=== PATIENT | female | born 2000 | race Caucasian/White ===

== ENCOUNTER 2022-05-30 13:57 | Emergency (ER) | payer MEDICAID ==
[2022-05-30 14:42] VITALS: BP 111/61; O2SAT 100
[2022-05-30 15:21] LABS: Appearance SLIGHTLY CLOUDY (CLEAR); Bilirubin NEGATIVE (NEGATIVE); Dipstick done @ ? MAIN LAB; Glucose NEGATIVE (NEGATIVE); Ketones NEGATIVE (NEGATIVE); Nitrite NEGATIVE (NEGATIVE); Ph 6.5 (5-6); Protein,Urine Dip NEGATIVE (Negative); RBC TRACE-INTACT Ery/ul (0-5); Urobilinogen 0.2 mg/dL (0-1)
[2022-05-30 15:24] LABS: Bacteria FEW /HPF (NEGATIVE); Epithelial Cells FEW /HPF (FEW); WBC >100 /HPF (0-5)
[2022-05-30 15:26] LABS: Urine Cultured Indicated? YES
[2022-05-30 16:15] VITALS: PULSE 86
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
== END 2022-05-30 16:45 | disposition left against medical advice (07) ==
LOC: ED 13:57
DX: M54.50 Low back pain, unspecified (principal); M54.6 Pain in thoracic spine; Z79.899 Other long term (current) drug therapy; Z28.310 Unvaccinated for COVID-19
CPT/HCPCS: 72072; 72110; 81015; 81025; 87086; G0463; 99283

== ENCOUNTER 2022-11-30 15:03 | Day surgery (SDC) | payer MEDICAID ==
[2022-11-30 15:16] LABS: HCG URINE TEST POSITIVE (NEGATIVE)
== END 2022-11-30 15:30 | disposition home or self-care (01) ==
LOC: SDC-PAIN 15:03
PROVIDERS: ATTEND Psychiatry & Neurology Pain Medicine
DX: Z53.8 Procedure and treatment not carried out for other reasons (principal)
CPT/HCPCS: 36415; 81025

== ENCOUNTER 2024-06-19 13:22 | Emergency (ER) | payer MEDICAID ==
[2024-06-19 13:58] VITALS: TEMP 97
[2024-06-19 14:57] LABS: HCG SERUM TEST POSITIVE (NEGATIVE)
[2024-06-19 15:14] LABS: Absolute Neutrophil Ct (ANC) 7.52 x10^3/uL (1.56-6.13); BASOPHIL % 0.2 % (0.1-1.2); Basophil (Absolute #) 0.02 x10^3/uL (0.01-0.08); Eosinophil % 0.4 % (0.7-5.8); Eosinophil (Absolute #) 0.04 x10^3/uL (0.04-0.36); Hemoglobin 13.8 g/dL (11.2-15.7); IMMATURE GRAN # 0.05 x10^3u/L (0.001-0.031); IMMATURE GRAN % 0.5 % (0.001-0.429); Lymphocyte (Absolute #) 1.92 x10^3/uL (1.18-3.74); Lymphocytes % 18.9 % (19.3-51.7); Mean Cell Volume 86.1 fL (79.4-94.8); Mean Corpuscular Hgb Concent. 33.7 g/dL (32.2-35.5); Mean Platelet Volume 9.8 fL (9.4-12.3); Monocytes % 5.9 % (4.7-12.5); Neutrophil % 74.1 % (34.0-71.1); Platelet Count 349 x10^3/uL (182-369); Red Blood Count 4.76 x10^6/uL (3.93-5.22); Red Cell Distribution Width 12.2 % (11.7-14.4); White Blood Count 10.2 x10^3/uL (3.98-10.04)
[2024-06-19 15:20] LABS: ALBUMIN 4.4 g/dL (3.5-5.0); ANION GAP 14.2 MEQ/L (5-15); BILIRUBIN,TOTAL 0.4 mg/dL (0.2-1.3); Calcium 9.6 mg/dL (8.4-10.2); Creatinine 1 0.99 mg/dL (0.52-1.04); EST GLOMERULAR FILTRATION RATE 83.2 ML/MIN; Potassium 3.9 mmol/L (3.5-5.1); Total Protein 7.2 g/dL (6.3-8.2)
[2024-06-19 15:20] LABS: Appearance Clear (Clear); Bacteria Rare /HPF (None Seen); Bilirubin Negative (Negative); Blood Large (Negative); Epithelial Cells Rare /HPF (None Seen); Glucose, Urine Negative (Negative); Hyaline Casts NONE SEEN /LPF (0-2); Ketones Negative (Negative); Leukocyte Esterase Trace (Negative); Nitrite Negative (Negative); Protein,Urine Dip Trace (Negative); Specific Gravity <=1.005 (1.005-1.030); Urobilinogen 0.2 mg/dL (0.2)
[2024-06-19 16:17] LABS: ABO TYPING O; Antibody Screen NEGATIVE (NEGATIVE); RH TYPING POSITIVE
--- NOTE | 2024-06-19 17:02 | XRAY ---
Indication: Vaginal bleeding. Positive test. Two-dimensional transabdominal early OB ultrasound performed. Comparison: None Uterus anteverted without focal solid/cystic mass. Thickened endometrial stripe up to 1.7 cm without intrauterine gestational sac, pole, or heart tones. Left/right ovaries are sonographically unremarkable. No suspicious adnexal mass or free fluid. Impression: Negative for intrauterine or ectopic .
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
[2024-06-19] MEDS ORDERED: KEFLEX 500 MG ONE (17:30)
[2024-06-19] MEDS: KEFLEX 500 MG PO ONE (17:31)
[2024-06-19 17:49] VITALS: BP 121/59; PULSE 68; RESP 16; O2SAT 99
== END 2024-06-19 17:48 | disposition home or self-care (01) ==
LOC: ED 13:22
DX: O02.81 Inappropriate change in quantitative human chorionic gonadotropin (hCG) in early pregnancy (principal); N39.0 Urinary tract infection, site not specified
CPT/HCPCS: 36415; 76801; 80053; 81001; 84702; 84703; 85025; 86850; 86900; 86901; 87086; 99283; 99284; A9270-GY